=== PATIENT | female | born 1965 | race Caucasian/White ===

== ENCOUNTER 2017-05-28 14:14 | Emergency (ER) | payer MEDICAID ==
[2017-05-28] MEDS ORDERED: Diph,Pert(Acell),Tet Vac 0.5 ML SYR IM ONE (14:27)
--- NOTE | 2017-05-28 14:30 | Emergency Department Record ---
History of Present Illness - General Chief Complaint: Laceration(s) Stated Complaint: LACERATION ON LEFT ARM Time Seen by Provider: 05/28/17 14:26 Source: Patient, Family Mode of Arrival: Ambulatory Limitations: No limitations - History of Present Illness Initial Commments: 51 yo female presents after a fall onto a fish tank. She landed on her left elbow. She has a laceration to the left elbow. She denies weakness, numbness or tingling. She has full ROM of the elbow. She is not on any blood thinners. She has left side pain as well. No head injury or neck injury. No lower extremity injury. PCP Lida Anderson -: Minutes(s) Extremity Location: Left: Elbow Place: Home Associated Symptoms: None - [place] Coma Scale Eye Response: (4) Open spontaneously Motor Response: (6) Obeys commands Verbal Response: (5) Oriented [place] Total: 15 - Related Data Hx Tetanus Toxoid Vaccination: Yes Year of Tetanus Vaccination: unknown Previous Rx's Medication Instructions Recorded Cephalexin [Keflex] 500 mg PO TID #30 cap 05/28/17 Hydrocodone/Acetaminophen [[place] 1 each PO Q6H #25 tablet 05/28/17 5-325 Tablet] Mometasone/Formoterol [Dulera 100 8.8 gm IH BID #1 hfa.aer.ad 05/28/17 Mcg/5 Mcg Inhaler] Allergies Allergy/AdvReac Type Severity Reaction Status Date / Time No Known Drug Allergies Allergy Verified 05/28/17 14:24 Review of Systems Constitutional: Denies: Chills, Malaise, Weakness Eyes: Denies: Eye discharge ENT: Denies: Congestion, Throat pain Respiratory: Denies: Cough Cardiovascular: Denies: Chest pain, Syncope Endocrine: Denies: Fatigue Gastrointestinal: Denies: Abdominal pain, Diarrhea, Nausea, Vomiting Genitourinary: Denies: Dysuria, Urgency Musculoskeletal: Reports: Arthralgia. Denies: Back pain, Myalgia Skin: Reports: Other (Laceration). Denies: Bruising, Change in color Neurological: Denies: Headache, Numbness, Weakness Psychiatric: Denies: Anxiety Hematological/Lymphatic: Denies: Blood Clots, Easy bleeding, Easy bruising, Swollen glands Past Medical History - SOCIAL HISTORY Smoking Status: Current every day smoker Alcohol Use: None Drug Use: None - RESPIRATORY Hx Respiratory Disorders: Yes - CARDIOVASCULAR Hx Cardio Disorders: Yes Hx Hypertension: Yes - NEURO Hx Neuro Disorders: No - GI Hx GI Disorders: Yes Hx Abdominal Pain: Yes Hx Reflux: Yes Hx Hiatal Hernia: Yes Hx Nausea/Vomiting: Yes Hx Wt Loss/Wt Gain: Yes - Hx Genitourinary Disorders: Yes Hx Kidney Stones: Yes (2012) - ENDOCRINE Hx Endocrine Disorders: Yes Hx Diabetes: Yes Hx Thyroid Disease: No - MUSCULOSKELETAL Hx Musculoskeletal Disorders: No - PSYCH Hx Psych Problems: Yes Hx Anxiety: Yes Hx Depression: Yes - HEMATOLOGY/ONCOLOGY Hx Hematology/Oncology Disorders: Yes Hx Cancer: Yes (Colon, tumor removed) Hx Chemotherapy: No Hx Radiation Therapy: No Family Medical History Any Significant Family History?: Yes Hx Anxiety: Mother, Brother/Sister Hx Cancer: Brother/Sister Hx Heart Disease: Mother Hx HTN: Mother Hx Resp Disorders: Father, Brother/Sister Physical Exam - General General Appearance: Alert, Oriented x3, Cooperative, No acute distress Limitations: No limitations - Head Head exam: Atraumatic, Normocephalic, Normal inspection - Eye Eye exam: Normal appearance. negative: Conjunctival injection, Periorbital swelling - ENT ENT exam: Normal exam, Mucous membranes moist Ear exam: Normal external inspection Nasal Exam: Normal inspection Mouth exam: Normal external inspection Teeth exam: Normal inspection - Neck Neck exam: Normal inspection - Respiratory Respiratory exam: Normal lung sounds bilaterally, Chest wall tenderness (left psterior ribs tender). negative: Accessory muscle use, Rhonchi, Stridor, Wheezes - Cardiovascular Cardiovascular Exam: Regular rate, Normal rhythm, Normal heart sounds Peripheral Pulses: 2+: Radial (R), Radial (L) - GI/Abdominal GI/Abdominal exam: Soft, Tenderness (tender left lateral abdominal wall). negative: Distended - Rectal Rectal exam: Deferred - exam: Deferred - Extremities Extremities exam: Other (laceration). negative: Normal inspection Image of Full Body: 1 - superficial abrasion, tender left flank 2 - 7 cm posterior elbow laceration, no FB or debris, some avulsed tissue, smaller distal triangle flap, no visible muscle or bone, full ROM of the elbow, sensation intact distally - Back Back exam: Reports: CVA tenderness (L), Muscle spasm, Tenderness. Denies: Normal inspection - Neurological Neurological exam: Alert, CN II-XII intact, Normal gait, Oriented X3. negative : Altered, Motor sensory deficit - Psychiatric Psychiatric exam: Normal affect, Normal mood. negative: Agitated, Anxious - Skin Skin exam: Other (laceration left posterior arm). negative: Diaphoretic, Erythema Course - Reevaluation(s) Reevaluation #1: The patient has a large posterior arm/elbow laceration This was immediately irrigated and washed out Lidocaine with epi local infiltration performed 05/28/17 15:08 Reevaluation #2: The elbow XR was reviewed with the radiologist No FB 05/28/17 15:45 Reevaluation #3: The CT scan of the chest was read as negative The CT scan of the ABDomen and pelvis demonstrated a non displaced 10th rib FX The Elbow was negative for fracture, effusion, or FB Reevaluation #4: Procedure Elbow Laceration Betadine skin Prep Shurclens spray and cleaning NS irrigation and additional 500cc Vicryl 4-0 deep to close gapping tissue #4 Prolene 3-0 suture simple interrupted #19 There was small areas of flap and avulsed tissue but coverage was near 100% non stick dressing placed I did speak with the patient's PCP Lida Anderson She was able to see the patient breifly in the ED She will assist in close outpatient follow up as this may be a wound with prolonged healing and risks for infection that were discussed with the patient She was given Kefzol in the ED 05/28/17 18:00 The patient states she is comfortable with breathing and pain control We discussed reasons to return and close follow up with the ED and her PCP 05/28/17 18:03 The patient ambulated well She reports she has controlled pain and prefers DC home She will be seen by RT for incentive spirometry We discussed returning at any time if she has concerns about infection, pain control or her breathing 05/28/17 18:12 05/28/17 18:34 She was seen by Medical Decision Making - Lab Data Result diagrams: 05/28/17 14:48 05/28/17 14:45 Disposition Disposition: Discharge Clinical Impression: Left rib fracture Qualifiers: Encounter type: initial encounter Rib fracture type: single rib Fracture type: closed Qualified Code(s): S22.32XA - Fracture of one rib, left side, initial encounter for closed fracture Elbow laceration Qualifiers: Encounter type: initial encounter Laterality: left Qualified Code(s): S51.012A - Laceration without foreign body of left elbow, initial encounter Disposition: Home, Self-Care Condition: (1) Good Instructions: Laceration (ED) Additional Instructions: Return on Saturday for a recheck of the laceration if not able to see your doctor this week Return immediately if you have fever, redness, pus, pain or any new concerns for injury or infection Take the Keflex 4 times daily You will need the sutures removed in 14 days Change the dressings once daily Prescriptions: Cephalexin [Keflex] 500 mg PO TID #30 cap Hydrocodone/Acetaminophen [[place] 5-325 Tablet] 1 each PO Q6H #25 tablet Mometasone/Formoterol [Dulera 100 Mcg/5 Mcg Inhaler] 8.8 gm IH BID #1 hfa.aer.ad Forms: Patient Portal Access Time of Disposition: 18:06 Quality - Quality Measures Quality Measures: N/A - Blood Pressure Screening Does Patient Have Any of the Following: No Blood Pressure Classification: Pre-Hypertensive BP Reading Systolic Measurement: 162 Diastolic Measurement: 88 Screening for High Blood Pressure: < Pre-Hypertensive BP, F/U Documented > [ G8950] Pre-Hypertensive Follow-up Interventions: Referral to alternative/primary care provider.
[2017-05-28 14:56] LABS: BASO % 0.2 % (0-6); EOS % 1.2 % (0-6); GRAN % 63.9 % (47-80); HEMATOCRIT 38.5 % (35.0-47.0); HEMOGLOBIN 12.5 gm/dl (11.6-16.0); LYMPH % 26.6 % (16-45); MEAN CELL VOLUME 90.6 fl (81-97); MEAN CORPUSCULAR HEMOGLOBIN 29.4 pg (27-33); MEAN CORPUSCULAR HGB CONC 32.5 g/dl (32-36); MEAN PLATELET VOLUME 9.8 fl (7.4-10.4); MONO % 8.1 % (0-9); PLATELET COUNT 420 K/uL (130-400); RED BLOOD COUNT 4.25 M/uL (3.80-5.40); RED CELL DISTRIBUTION WIDTH 15.9 % (11.5-14.5); WHITE BLOOD COUNT W/O DIFF 13.7 K/uL (4.2-12.2)
[2017-05-28 15:05] LABS: ANION GAP 10.2 (7-16); BLOOD UREA NITROGEN 7 mg/dL (7-17); CARBON DIOXIDE 22.8 mmol/L (22-30); CREATININE 0.5 mg/dL (0.52-1.04); EST GLOMERULAR FILTRATION RATE > 60 ml/min; GLUCOSE,RANDOM 130 mg/dL (70-110)
[2017-05-28] MEDS ORDERED: FENTANYL PF 100MCG/2ML VIAL IVP ONE ×2 (15:08→16:13)
[2017-05-28 15:26] LABS: INR 1.13; PARTIAL THROMBOPLASTIN TIME 25.7 SECONDS (24.5-39.1); PROTHROMBIN TIME (PATIENT) 12.2 SECONDS (9.5-12.1)
[2017-05-28] MEDS ORDERED: CEFAZOLIN 2 Gram 2 GM/50 ML BAG IVPB ONE (16:56)
--- NOTE | 2017-05-29 08:32 | CT SCAN REPORT ---
EXAM: EMERGENCY CT OF THE ABDOMEN AND PELVIS WITH CONTRAST HISTORY: PATIENT FELL ONTO A FISH TANK WITH ACUTE LEFT SIDED PAIN . PRIOR UMBILICAL HERNIA REPAIR, CHOLECYSTECTOMY. TECHNIQUE: Axial CT scan of the abdomen and pelvis was obtained following both oral and IV contrast administration utilizing a dose of 100 ml of Omnipaque 300 as the IV contrast. Oral contrast was also utilized. Comparison: CT of the abdomen and pelvis 06/07/15. Encounter: Initial. FINDINGS: There is some mild pericardial fluid or thickening similar to that seen on 06/07/15. Minor linear fibrosis or discoid atelectasis in the lingula. No basilar pneumothorax on either side. Postop cholecystectomy. Postop changes in the region of the proximal transverse colon probably representing prior proximal colon resection with an ileocolic anastomosis in this location. There is a subtle area of low attenuation approximately 2.3 cm in diameter anteriorly in the right lobe of the liver not clearly seen on the prior study, nonspecific in nature. This has a CT density fo 68 and is not a simple cyst. This could just represent some variable fatty infiltration, but was not clearly seen previously. Elsewhere the liver appears negative. No definite splenic, right adrenal, pancreatic, or renal mass identified aside from a single tiny low attenuation in the upper pole of the left kidney which I believe was present previously as well and is likely just a tiny cyst. Small nodule left adrenal appears unchanged, presumably a lipid rich adenoma. There is a small midline anterior abdominal wall hernia that has progressed from the prior study and contains a small amount of nonobstructed transverse colon. No free intraperitoneal air or free intraperitoneal fluid evident. Prominent spurring in the spine. There is spondylolysis of L5 on the right, but not on the left. Exuberant hypertrophic spurring in the lower thoracic spine and multilevel degenerative disk disease in the lumbar spine. There is probably an undisplaced fracture laterally in the left tenth rib. This is new compared with the 06/07/15 exam and is presumably acute. There is some mild soft tissue stranding in the subcutaneous adipose tissue of the left flank region which may represent some contusion in the subcutaneous tissues. This is also new compared with the prior study. IMPRESSION: 1. UNDISPLACED FRACTURE OF THE LEFT TENTH RIB POSTEROLATERALLY NEW SINCE AND APPEARS ACUTE. NO UNDERLYING PNEUMOTHORAX EVIDENT. 2. THERE IS PROBABLY SOME CONTUSION IN THE SUBCUTANEOUS TISSUES OF THE LEFT FLANK WELL. 3. MILD PERICARDIAL FLUID OR THICKENING BEFORE. 4. POSTOP CHOLECYSTECTOMY. 5. SUBTLE LOW ATTENUATION FOCUS RIGHT LOBE OF THE LIVER FAR ANTERIORLY MAY JUST BE SOME VARIABLE FATTY INFILTRATION, BUT IS NONSPECIFIC. THIS COULD BE FURTHER ASSESSED WITH AN MRI IF CLINICALLY WARRANTED AND NOT CONTRAINDICATED. 6. POSTOP PROXIMAL COLON RESECTION OF AN ILEOCOLIC ANASTOMOSIS IN THE REGION OF THE PROXIMAL TRANSVERSE COLON. 7. MIDLINE ANTERIOR ABDOMINAL WALL HERNIA CONTAINING A SMALL SEGMENT OF THE MID TRANSVERSE COLON, NONOBSTRUCTING. 8. 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 9. UNILATERAL SPONDYLOLYSIS OF L5 ON THE RIGHT. EXTENSIVE DEGENERATIVE CHANGES IN THE SPINE. JOB NUMBER: [id number] [facility]
--- NOTE | 2017-05-29 08:38 | CT SCAN REPORT ---
EXAM: CHEST CT WITHOUT IV CONTRAST HISTORY: FALL, LEFT RIB INJURY AND LEFT CHEST PAIN. TECHNIQUE: Contiguous axial images from the thoracic inlet to the upper abdomen were obtained without IV contrast. Comparison: CT of the chest 04/29/15. Encounter: Initial. FINDINGS: Focal reticular density in the anterior aspect of the right lower lobe consistent with post inflammatory scarring. Similar findings in the superior segment of the left lower lobe consistent with scarring. Benign calcified granuloma 1 mm left upper lobe. No pleural effusion. No pneumothorax. Linear scarring in the lingula. Hypodense nodule in the mid to lower left thyroid lobe measuring 11 mm. The heart is not enlarged and there is no pericardial effusion. Mild coronary artery calcification. No enlarged lymph nodes in the thorax. No rib fracture. No lytic or blastic osseous lesion. The upper abdomen demonstrates thickening of the adrenal glands consistent with benign hyperplasia. IMPRESSION: 1. NO ACUTE INTRATHORACIC PROCESS. NO RIB FRACTURES IDENTIFIED. 2. SMALL FOCI OF POST INFLAMMATORY SCARRING IN THE LUNGS ABOVE. 3. MILD CORONARY ARTERY CALCIFICATION. JOB NUMBER: [id number] [facility]
--- NOTE | 2017-05-29 08:41 | RADIOLOGY REPORT ---
EXAM: LEFT ELBOW, THREE VIEWS HISTORY: FALL AGAINST FISH TANK WHICH SHATTERED. LEFT ELBOW INJURY AND PAIN. TECHNIQUE: Three views of the left elbow were obtained. Comparison: None. FINDINGS: No acute fracture or radiodense foreign body. Soft tissue swelling/ defect posterior aspect left elbow. IMPRESSION: NEGATIVE FOR ACUTE FRACTURE OR RADIODENSE FOREIGN BODY OF THE LEFT ELBOW. JOB NUMBER: [id number] [facility]
== END 2017-05-28 18:38 | disposition home or self-care (01) ==
LOC: ER 14:14
DX: S51.012A Laceration without foreign body of left elbow, initial encounter (principal); S22.32XA Fracture of one rib, left side, initial encounter for closed fracture; S30.811A Abrasion of abdominal wall, initial encounter; W18.02XA Striking against glass with subsequent fall, initial encounter; Y92.009 Unspecified place in unspecified non-institutional (private) residence as the place of occurrence of the external cause
CPT/HCPCS: 12032 ×2; 99284 ×2; 96376; 96374; 96372; 96375; 85025; 85730; 85610; 80048; 73080; 71250; 74177; 94010; Q9967; J3010; J0690; 90715

== ENCOUNTER 2017-05-31 20:04 | Emergency (ER) | payer MEDICAID ==
--- NOTE | 2017-05-31 21:00 | Emergency Department Record ---
History of Present Illness - General Stated Complaint: RECHECK Time Seen by Provider: 05/31/17 20:53 Source: Patient Mode of arrival: Ambulatory Limitations: No limitations - History of Present Illness Initial Comments: 51 yo female presents with recheck of her left arm laceration and left rib injuries. She reports left rib pain still. No shortness of breath. NO hemoptysis. She has developed some bruising in that area. Her arm laceration is doing well with minimal swelling, no warmth, redness or drainage. No fevers. She is cleaning the area daily and changing the dressings. NO restrictions on ROM of the elbow. No pain with ROM of the elbow. No other new symptoms. MD Complaint: Wound re-check -: Days(s) Initial Visit For: Laceration, Other (rib fracture) Returns Today for: Wound recheck Symptoms Since Prior Visit: No new symptoms - Related Data Previous Rx's Medication Instructions Recorded Cephalexin [Keflex] 500 mg PO TID #30 cap 05/28/17 Hydrocodone/Acetaminophen [[place] 1 each PO Q6H #25 tablet 05/28/17 5-325 Tablet] Mometasone/Formoterol [Dulera 100 8.8 gm IH BID #1 hfa.aer.ad 05/28/17 Mcg/5 Mcg Inhaler] Hydrocodone/Acetaminophen [[place] 1 tab PO Q6H PRN #25 tab 05/31/17 7.5mg/325mg] Allergies Allergy/AdvReac Type Severity Reaction Status Date / Time No Known Drug Allergies Allergy Verified 05/28/17 14:24 Review of Systems Constitutional: Denies: Chills, Fever, Malaise, Weakness Eyes: Denies: Eye discharge, Eye pain, Photophobia, Vision change ENT: Denies: Congestion, Throat pain Respiratory: Denies: Cough, Dyspnea, Hemoptysis, Stridor, Wheezes Cardiovascular: Reports: As per HPI, Chest pain. Denies: Palpitations, Syncope Endocrine: Reports: Fatigue. Denies: Polydipsia, Polyuria Gastrointestinal: Denies: Abdominal pain, Diarrhea, Nausea, Vomiting Genitourinary: Denies: Dysuria, Urgency Musculoskeletal: Denies: Arthralgia, Back pain, Joint swelling, Myalgia, Neck pain Skin: Reports: As per HPI, Bruising. Denies: Change in color, Rash Neurological: Denies: Headache, Numbness, Vertigo, Weakness Psychiatric: Denies: Anxiety Hematological/Lymphatic: Denies: Blood Clots, Easy bleeding, Easy bruising, Swollen glands Past Medical History - SOCIAL HISTORY Smoking Status: Current every day smoker Drug Use: None - RESPIRATORY Hx Respiratory Disorders: Yes - CARDIOVASCULAR Hx Cardio Disorders: Yes Hx Hypertension: Yes - NEURO Hx Neuro Disorders: No - GI Hx GI Disorders: Yes Hx Abdominal Pain: Yes Hx Reflux: Yes Hx Hiatal Hernia: Yes Hx Nausea/Vomiting: Yes Hx Wt Loss/Wt Gain: Yes - Hx Genitourinary Disorders: Yes Hx Kidney Stones: Yes (2012) - ENDOCRINE Hx Endocrine Disorders: Yes Hx Diabetes: Yes Hx Thyroid Disease: No - MUSCULOSKELETAL Hx Musculoskeletal Disorders: No - PSYCH Hx Psych Problems: Yes Hx Anxiety: Yes Hx Depression: Yes - HEMATOLOGY/ONCOLOGY Hx Hematology/Oncology Disorders: Yes Hx Cancer: Yes (Colon, tumor removed) Hx Chemotherapy: No Hx Radiation Therapy: No Family Medical History Hx Anxiety: Mother, Brother/Sister Hx Cancer: Brother/Sister Hx Heart Disease: Mother Hx HTN: Mother Hx Resp Disorders: Father, Brother/Sister Physical Exam - General General Appearance: Alert, Oriented x3, Cooperative, No acute distress Limitations: No limitations - Head Head exam: Atraumatic, Normocephalic, Normal inspection - Eye Eye exam: Normal appearance. negative: Conjunctival injection, Periorbital swelling - ENT ENT exam: Normal exam, Mucous membranes moist Ear exam: Normal external inspection Nasal Exam: Normal inspection Mouth exam: Normal external inspection - Neck Neck exam: Normal inspection, Full ROM. negative: Tenderness - Respiratory Respiratory exam: Normal lung sounds bilaterally, Chest wall tenderness (left lateral lower, with some bruising now). negative: Prolonged expiratory, Respiratory distress, Rhonchi, Stridor, Wheezes - Cardiovascular Cardiovascular Exam: Regular rate, Normal rhythm, Normal heart sounds - GI/Abdominal GI/Abdominal exam: Soft. negative: Distended, Guarding, Rigid, Tenderness - Rectal Rectal exam: Deferred - exam: Deferred - Extremities Extremities exam: Full ROM. negative: Joint swelling Image of Full Body: 1 - the laceration is healing well at this time, no warmth or redness, very mild bruising now present, she has full ROM of the elbow without any pain, no pus, drainage or signs of infection. - Back Back exam: Denies: Normal inspection (brusiing left flank near rib fracture site ) - Neurological Neurological exam: Alert, Oriented X3 - Psychiatric Psychiatric exam: Normal affect, Normal mood - Skin Skin exam: Other (bruising) Course Vital Signs 05/31/17 20:42 Temperature 98.4 F Respiratory 20 Rate Blood Pressure 144/75 [Right Arm] Pulse Ox 95 - Reevaluation(s) Reevaluation #1: The laceration is healing at this point without any signs of infection or complication, no warmth, pus, redness or significant swelling. The area was cleaned and redressed. The elbow has a full ROM without pain. 05/31/17 21:10 Disposition Disposition: Discharge Clinical Impression: Encounter for wound re-check Rib fracture Qualifiers: Encounter type: initial encounter Rib fracture type: single rib Fracture type: closed Laterality: left Qualified Code(s): S22.32XA - Fracture of one rib, left side, initial encounter for closed fracture Disposition: Home, Self-Care Condition: (1) Good Instructions: Laceration (ED) Additional Instructions: Return or see your doctor first of the week for a recheck of your laceration Return sooner if warm, red, swelling, pus or concerns Continue daily dressing changes and antibiotics Prescriptions: Hydrocodone/Acetaminophen [[place] 7.5mg/325mg] 1 tab PO Q6H PRN #25 tab PRN Reason: Pain - General Time of Disposition: 21:12 Quality - Quality Measures Quality Measures: N/A - Blood Pressure Screening Does Patient Have Any of the Following: No Blood Pressure Classification: Hypertensive Reading Systolic Measurement: 144 Diastolic Measurement: 75 Screening for High Blood Pressure: < Pre-Hypertensive BP, F/U Documented > [ G8950] Pre-Hypertensive Follow-up Interventions: Referral to alternative/primary care provider.
== END 2017-05-31 21:22 | disposition home or self-care (01) ==
LOC: ER 20:04
DX: S51.012A Laceration without foreign body of left elbow, initial encounter (principal); S22.32XA Fracture of one rib, left side, initial encounter for closed fracture; S30.811A Abrasion of abdominal wall, initial encounter; W18.02XA Striking against glass with subsequent fall, initial encounter; Y92.009 Unspecified place in unspecified non-institutional (private) residence as the place of occurrence of the external cause
CPT/HCPCS: 99282

== ENCOUNTER 2017-06-11 12:25 | Emergency (ER) | payer MEDICAID ==
--- NOTE | 2017-06-11 12:29 | Emergency Department Record ---
History of Present Illness - General Chief Complaint: Suture removal Stated Complaint: SUTURE REMOVAL Time Seen by Provider: 06/11/17 12:29 Source: Patient Mode of arrival: Ambulatory Limitations: No limitations - History of Present Illness Initial Comments: 51 yo female presents for a recheck of her left posterior arm laceration. She reports she is doing well. No pain or redness. No drainage. NO problems with healing. MD Complaint: Suture/staple removal, Wound re-check -: Week(s) (2) Initial Visit For: Laceration Returns Today for: Staple/stitch removal Symptoms Since Prior Visit: No new symptoms Associated Symptoms: None - Related Data Previous Rx's Medication Instructions Recorded Hydrocodone/Acetaminophen [[place] 1 each PO Q6H #25 tablet 05/28/17 5-325 Tablet] Mometasone/Formoterol [Dulera 100 8.8 gm IH BID #1 hfa.aer.ad 05/28/17 Mcg/5 Mcg Inhaler] Allergies Allergy/AdvReac Type Severity Reaction Status Date / Time No Known Drug Allergies Allergy Verified 06/11/17 12:29 Review of Systems Constitutional: Denies: Chills, Fever, Malaise, Weakness Eyes: Denies: Eye discharge ENT: Denies: Congestion, Throat pain Respiratory: Denies: Cough Cardiovascular: Reports: Chest pain (rib fracture, improving with some pain still, no shortness of breath). Denies: Palpitations, Syncope Endocrine: Denies: Fatigue Gastrointestinal: Denies: Abdominal pain, Diarrhea, Nausea, Vomiting Genitourinary: Denies: Dysuria, Incontinence Musculoskeletal: Denies: Arthralgia, Myalgia Skin: Denies: Bruising, Change in color, Rash Neurological: Denies: Abnormal gait, Headache, Numbness, Weakness Psychiatric: Denies: Anxiety Hematological/Lymphatic: Denies: Blood Clots, Easy bleeding, Easy bruising Past Medical History - SOCIAL HISTORY Smoking Status: Current every day smoker Alcohol Use: None Drug Use: None - RESPIRATORY Hx Respiratory Disorders: Yes - CARDIOVASCULAR Hx Cardio Disorders: Yes Hx Hypertension: Yes - NEURO Hx Neuro Disorders: No - GI Hx GI Disorders: Yes Hx Abdominal Pain: Yes Hx Reflux: Yes Hx Hiatal Hernia: Yes Hx Nausea/Vomiting: Yes Hx Wt Loss/Wt Gain: Yes - Hx Genitourinary Disorders: Yes Hx Kidney Stones: Yes (2012) - ENDOCRINE Hx Endocrine Disorders: Yes Hx Diabetes: Yes Hx Thyroid Disease: No - MUSCULOSKELETAL Hx Musculoskeletal Disorders: No - PSYCH Hx Psych Problems: Yes Hx Anxiety: Yes Hx Depression: Yes - HEMATOLOGY/ONCOLOGY Hx Hematology/Oncology Disorders: Yes Hx Cancer: Yes (Colon, tumor removed) Hx Chemotherapy: No Hx Radiation Therapy: No Family Medical History Any Significant Family History?: Yes Hx Anxiety: Mother, Brother/Sister Hx Cancer: Brother/Sister Hx Heart Disease: Mother Hx HTN: Mother Hx Resp Disorders: Father, Brother/Sister Physical Exam - General General Appearance: Alert, Oriented x3, Cooperative, No acute distress Limitations: No limitations - Head Head exam: Atraumatic, Normal inspection - Eye Eye exam: Normal appearance - ENT ENT exam: Normal exam Ear exam: Normal external inspection Nasal Exam: Normal inspection - Neck Neck exam: Normal inspection - Respiratory Respiratory exam: Normal lung sounds bilaterally. negative: Respiratory distress - Cardiovascular Cardiovascular Exam: Regular rate, Normal rhythm, Normal heart sounds - Rectal Rectal exam: Deferred - exam: Deferred - Extremities Extremities exam: Normal inspection, Full ROM, Normal capillary refill. negative: Joint swelling, Tenderness Image of Full Body: 1 - healing laceration, no redness or pus, the wound intact, no redness or pus , healing without signs of complication - Neurological Neurological exam: Alert, Oriented X3 - Psychiatric Psychiatric exam: Agitated, Anxious - Skin Type of lesion: Other (healing bruising) Disposition Disposition: Discharge Clinical Impression: Visit for suture removal Rib fracture Qualifiers: Encounter type: initial encounter Rib fracture type: single rib Fracture type: closed Laterality: left Qualified Code(s): S22.32XA - Fracture of one rib, left side, initial encounter for closed fracture Disposition: Home, Self-Care Condition: (1) Good Instructions: Stitches Removal (ED) Additional Instructions: follow up with your doctor for close follow up as you continue to heal Return to the ED if you have any concerns as you heal Forms: Patient Portal Access Time of Disposition: 12:47 Quality - Quality Measures Quality Measures: N/A - Blood Pressure Screening Does Patient Have Any of the Following: No Blood Pressure Classification: Hypertensive Reading Systolic Measurement: 158 Diastolic Measurement: 106 Screening for High Blood Pressure: < Pre-Hypertensive BP, F/U Documented > [ G8950] Pre-Hypertensive Follow-up Interventions: Referral to alternative/primary care provider.
== END 2017-06-11 13:02 | disposition home or self-care (01) ==
LOC: ER 12:25
DX: Z48.02 Encounter for removal of sutures (principal); S22.32XA Fracture of one rib, left side, initial encounter for closed fracture

== ENCOUNTER 2018-03-31 07:24 | Day surgery (SDC) | payer MEDICAID ==
[~2018-03-31 07:24] MED LIST: ACETAMINOPHEN 1,000 MG/100 ML BTL IV ONE; CEFAZOLIN 2 Gram 2 GM/50 ML BAG IVPB ONE; FAMOTIDINE 20MG TABLET PO ONE; MECLIZINE 25 MG TABLET PO ONE; METOCLOPRAMIDE 10 MG TABLET PO ONE
[2018-03-31] MEDS ORDERED: PROPOFOL 10 MG/ML VIAL IV ONE (07:25)
[2018-03-31] MEDS ORDERED: FENTANYL PF 100MCG/2ML VIAL IV ONE (07:25)
[2018-03-31] MEDS ORDERED: BUPIVACAINE 0.25% W/EPI MPF 30ML VIAL IVP ONE (07:25)
[2018-03-31] MEDS ORDERED: KETOROLAC 30 MG/ML VIAL IVP ONE (07:25)
[2018-03-31] MEDS ORDERED: SEVOFLURANE 250 ML INH ONE (07:25)
[2018-03-31] MEDS ORDERED: HYDROCODONE/APAP 5/325MG TABLET PO ONE (07:25)
[2018-03-31] MEDS ORDERED: ROCURONIUM BROMIDE 50MG/5ML VIAL IV ONE (07:25)
[2018-03-31] MEDS ORDERED: ONDANSETRON HCL IV 4 MG/2 ML VIAL IVP ONE (07:25)
[2018-03-31] MEDS ORDERED: EPHEDRINE SULFATE 50 MG/ML ML IV ONE (07:25)
[2018-03-31] MEDS ORDERED: DEXAMETHASONE 4 MG/ML 1ML VIAL IVP ONE (07:25)
[2018-03-31] MEDS ORDERED: LIDOCAINE 1% MDV (10MG/ML) 20ML VIAL SQ ONE (07:25)
[2018-03-31] MEDS ORDERED: GLYCOPYRROLATE 0.2 MG/ML ML IV ONE (07:25)
[2018-03-31] MEDS ORDERED: SUCCINYLCHOLINE 20 MG/ML 10ML IVP ONE (07:25)
[2018-03-31] MEDS ORDERED: ROPIVACAINE HCL (NAROPIN) /PF 5MG/ML 20ML VIAL IV ONE (07:25)
[2018-03-31] MEDS ORDERED: NEOSTIGMINE 1 MG/1 ML,10ML VIAL IV ONE (07:25)
[2018-03-31] MEDS ORDERED: SCOPOLAMINE 1 PATCH TDSY TD ONE (07:25)
[2018-03-31] MEDS ORDERED: MIDAZOLAM HCL 2MG/2ML VIAL IV ONE (07:25)
--- NOTE | 2018-03-31 12:50 | Operative Note ---
DATE OF SURGERY: 03/31/2018 Surgeon: Celio Tony DO PREOPERATIVE DIAGNOSIS: Reducible ventral hernia. POSTOPERATIVE DIAGNOSIS: Reducible ventral hernia. OPERATION: Open ventral herniorrhaphy with mesh. Indication: The patient is a 52-year-old female who underwent a prior midline laparotomy for a colon resection. She has also undergone an open cholecystectomy, wound infection, and subsequent drainage. She did have a midline hernia which was reducible. We did discuss repair. Risks, benefits, and alternatives were discussed. Risks include bleeding, infection, acute or chronic pain, recurrence, injury to underlying visceral structures. She understood this full. Thereafter, consent was signed and questions answered. PROCEDURE: She was taken to the operating room and placed in a supine position. General anesthesia was administered per the department of anesthesia. The patient's abdomen was prepped and draped in the usual sterile fashion. The area over the hernia was anesthetized with a total of 10 mL of 0.25% Sensorcaine with epinephrine. The patient had also undergone a prior TAP block. Adequate timeout was performed. Her identity was confirmed. She did receive preoperative antibiotics as well as DVT prophylaxis. At this time, a 6 cm incision was made. This was carried down to a hernia sac. Clean circumferential fascial edges were obtained about 3 cm around the hernia. The hernia sac was then entered, amputated. This did contain omentum. The intraperitoneal space was created. At this time, the hernia measured about 2 cm. An 8.[address] mesh was obtained. This was placed in the intraperitoneal position. The upper skirt was sutured to the fascia with 2-0 Vicryl. I did close the fascia with #1 Vicryl over the top of this for extra reinforcement. A 10 x 4 cm ProGrip mesh was then laid on the fascia. The subcutaneous tissue was then closed with 2-0 Vicryl, skin was closed with stapling device. An abdominal binder was placed, and she was taken to the recovery room in satisfactory condition. FINDINGS ON SURGERY: Ventral hernia repaired as above. CC: SARA Buenrostro
== END 2018-03-31 10:40 | disposition home or self-care (01) ==
LOC: SUR 07:24
PROVIDERS: ATTEND Surgery
DX: K43.9 Ventral hernia without obstruction or gangrene (principal); E11.9 Type 2 diabetes mellitus without complications; E78.00 Pure hypercholesterolemia, unspecified; I10 Essential (primary) hypertension; J45.909 Unspecified asthma, uncomplicated
CPT/HCPCS: 49568; 49560; 00832; 36416; 82948; 81025; J1885; J2405; J3010; J0690; J2795; J0330; J2710

== ENCOUNTER 2019-07-08 17:40 | Emergency (ER) | payer MEDICAID ==
[2019-07-08 19:09] LABS: ABSOLUTE NEUTROPHIL COUNT 16.62; HEMATOCRIT 41.3 % (35.0-47.0); MEAN CELL VOLUME 97.4 fl (81-97); MEAN CORPUSCULAR HEMOGLOBIN 30.7 pg (27-33); MEAN CORPUSCULAR HGB CONC 31.5 g/dl (32-36); MEAN PLATELET VOLUME 9.7 fl (7.4-10.4); PLATELET COUNT 358 K/uL (130-400); RED BLOOD COUNT 4.24 M/uL (3.80-5.40); RED CELL DISTRIBUTION WIDTH 13.9 % (11.5-14.5); WHITE BLOOD COUNT W/O DIFF 18.2 K/uL (4.2-12.2)
[2019-07-08 19:16] LABS: PLATELET ESTIMATE NORMAL (NORMAL)
[2019-07-08 19:19] LABS: BLOOD UREA NITROGEN 21 mg/dL (6-20); CREATININE 0.6 mg/dL (0.5-0.9); EST GLOMERULAR FILTRATION RATE > 60 mL/min; INR 1.1; PARTIAL THROMBOPLASTIN TIME 26.4 SECONDS (24.5-39.1); PROTHROMBIN TIME (PATIENT) 11.1 SECONDS (9.5-12.1)
[2019-07-08 19:20] LABS: TOTAL PROTEIN 7.7 g/dL (6.6-8.7)
[2019-07-08 19:22] LABS: GLUCOSE,RANDOM 117 mg/dL (74-109)
[2019-07-08 19:25] LABS: ALB/GLOB RATIO 1.5 (1.1-1.8); ALBUMIN 4.6 g/dL (4.0-5.0); ALKALINE PHOSPHATASE 110 U/L (35-104); ALT/SGPT 14 U/L (<33); AST/SGOT 12 U/L (10.0-35.0)
--- NOTE | 2019-07-08 19:44 | RADIOLOGY REPORT ---
EXAMINATION: Two View Chest Radiographs EXAM DATE: 07/08/2019 7:29 PM TECHNIQUE: Frontal and lateral views INDICATION: cough COMPARISON: 07/06/2019 ENCOUNTER: Not applicable FINDINGS: Heart and mediastinal structures stable. No pulmonary consolidation or infiltration. No pneumothorax or pleural effusion. Stable sclerotic density in the left humeral head and left scapula IMPRESSION: No acute abnormality Dictated by: Matheus Peck MD on 07/08/2019 7:40 PM. .
--- NOTE | 2019-07-08 19:48 | Emergency Department Record ---
History of Present Illness - General Chief Complaint: Cough Stated Complaint: COUGH,LT HIP/UNEXPLAINED BRUISING Time Seen by Provider: 07/08/19 18:41 Source: Patient Mode of Arrival: Ambulatory Limitations: No limitations - History of Present Illness Initial comments: pt sent over from [facility] because she has a bruise on her flank. she has had bronchitis and has been on zithromax for 2 days. she has been coughing very hard and now she has a bruise on her flank that she is unsure of etiology. she denies injury. Onset/Timin -: Days(s) Location: Abdomen Radiation: Flank Quality: Aching Consistency: Constant Associated Symptoms: Cough - Related Data Previous Rx's Medication Instructions Recorded Amoxicillin/Potassium Clav 1 tab PO BID #14 tab 07/08/19 [Augmentin 875-125 Tablet] Benzonatate [Tessalon] 1 cap PO Q8H PRN #14 cap 07/08/19 Allergies Allergy/AdvReac Type Severity Reaction Status Date / Time No Known Drug Allergies Allergy Unverified 07/06/19 15:19 Travel Screening - Travel/Exposure Within Last 30 Days Have you traveled within the last 30 days?: No - Travel/Exposure Within Last Year Have you traveled outside the [place] in the last year?: No - Additonal Travel Details Have you been exposed to anyone with a communicable illness?: No Review of Systems Reviewed: No additional complaints except as noted below Constitutional: Reports: As per HPI. Denies: Chills, Fever, Malaise, Night sweats, Weakness, Weight change Eyes: Reports: As per HPI. Denies: Eye discharge, Eye pain, Photophobia, Vision change ENT: Reports: As per HPI. Denies: Congestion, Dental pain, Ear pain, Epistaxis, Hearing loss, Throat pain Respiratory: Reports: As per HPI. Denies: Cough, Dyspnea, Hemoptysis, Stridor, Wheezes Cardiovascular: Reports: As per HPI. Denies: Arrhythmia, Chest pain, Dyspnea on exertion, Edema, Murmurs, Orthopnea, Palpitations, Paroxysmal nocturnal dyspnea, Rheumatic Fever, Syncope Endocrine: Reports: As per HPI. Denies: Fatigue, Heat or cold intolerance, Polydipsia, Polyuria Gastrointestinal: Reports: As per HPI. Denies: Abdominal pain, Constipation, Diarrhea, Hematemesis, Hematochezia, Melena, Nausea, Vomiting Genitourinary: Reports: As per HPI. Denies: Abnormal menses, Discharge, Dyspareunia, Dysuria, Frequency, Hematuria, Incontinence, Retention, Urgency Musculoskeletal: Reports: As per HPI. Denies: Arthralgia, Back pain, Gout, Joint swelling, Myalgia, Neck pain Skin: Reports: As per HPI. Denies: Bruising, Change in color, Change in hair/nails, Lesions, Pruritus, Rash Neurological: Reports: As per HPI. Denies: Abnormal gait, Confusion, Headache, Numbness, Paresthesias, Seizure, Tingling, Tremors, Vertigo, Weakness Psychiatric: Reports: As per HPI. Denies: Anxiety, Auditory hallucinations, Depression, Homicidal thoughts, Suicidal thoughts, Visual hallucinations Hematological/Lymphatic: Reports: As per HPI. Denies: Anemia, Blood Clots, Easy bleeding, Easy bruising, Swollen glands Past Medical History - SOCIAL HISTORY Smoking Status: Current every day smoker Alcohol Use: None Drug Use: None - RESPIRATORY Hx Respiratory Disorders: Yes Hx Bronchitis: Yes (2 weeks ago-on ABX-better now) Hx COPD: Yes - CARDIOVASCULAR Hx Cardio Disorders: Yes Hx Hypertension: Yes - NEURO Hx Neuro Disorders: No - GI Hx GI Disorders: Yes Hx Abdominal Pain: Yes Hx Reflux: No Hx Hiatal Hernia: No Hx Nausea/Vomiting: Yes (sometimes) Hx Wt Loss/Wt Gain: No - Hx Genitourinary Disorders: Yes Hx Kidney Stones: Yes (2012) - ENDOCRINE Hx Endocrine Disorders: Yes Hx Diabetes: Yes Hx Thyroid Disease: No Comment:: last accucheck 7-85 in morning/ 177 during the day - MUSCULOSKELETAL Hx Musculoskeletal Disorders: No - PSYCH Hx Psych Problems: Yes Hx Anxiety: Yes Hx Depression: Yes - HEMATOLOGY/ONCOLOGY Hx Hematology/Oncology Disorders: Yes Hx Cancer: Yes (Colon, tumor removed) Hx Chemotherapy: No Hx Radiation Therapy: No Family Medical History Any Significant Family History?: No Hx Anxiety: Mother, Brother/Sister Hx Cancer: Brother/Sister Hx Heart Disease: Mother Hx HTN: Mother Hx Resp Disorders: Father, Brother/Sister Physical Exam - General General Appearance: Alert, Oriented x3, Cooperative, Mild distress - Head Head exam: Normal inspection - Eye Eye exam: Normal appearance, PERRL, EOMI Pupils: Normal accommodation - ENT ENT exam: Normal exam, Mucous membranes moist, Normal external ear exam, Normal orophraynx, TM's normal bilaterally Ear exam: Normal external inspection. negative: External canal tenderness Nasal Exam: Normal inspection. negative: Discharge, Sinus tenderness Mouth exam: Normal external inspection, Tongue normal Teeth exam: Normal inspection. negative: Dental caries Throat exam: Normal inspection. negative: Tonsillar erythema, Tonsillar exudate - Neck Neck exam: Normal inspection, Full ROM. negative: Tenderness - Respiratory Respiratory exam: Decreased breath sounds. negative: Respiratory distress - Cardiovascular Cardiovascular Exam: Normal rhythm, Normal heart sounds, Tachycardia - GI/Abdominal GI/Abdominal exam: Soft, Normal bowel sounds, Tenderness - Rectal Rectal exam: Deferred - exam: Deferred - Extremities Extremities exam: Normal inspection, Full ROM, Normal capillary refill. negative: Tenderness - Back Back exam: Reports: Normal inspection, Full ROM. Denies: Muscle spasm, Rash noted, Tenderness Image of Body Front/Back: 1 - ecchymosis - Neurological Neurological exam: Alert, CN II-XII intact, Normal gait, Oriented X3 - Psychiatric Psychiatric exam: Normal affect, Normal mood - Skin Skin exam: Dry, Intact, Normal color, Warm Course Vital Signs 07/08/19 07/08/19 17:48 19:14 Temperature 98.4 F Pulse Rate 109 H Pulse Rate [ 95 H Pulse Ox Probe] Respiratory 20 16 Rate Blood Pressure 149/94 Blood Pressure 154/107 [Left Arm] Pulse Ox 94 L 95 Medical Decision Making - Lab Data Result diagrams: 07/08/19 19:00 07/08/19 19:00 Lab Results 07/08/19 07/08/19 07/08/19 Range/Units 19:00 19:00 19:00 WBC 18.2 H (4.2-12.2) K/uL RBC 4.24 (3.80-5.40) M/uL Hgb 13.0 (11.6-16.0) gm/dl Hct 41.3 (35.0-47.0) % MCV 97.4 H (81-97) fl MCH 30.7 (27-33) pg MCHC 31.5 L (32-36) g/dl RDW 13.9 (11.5-14.5) % Plt Count 358 (130-400) K/uL MPV 9.7 (7.4-10.4) fl Neutrophils % 91.0 H (47-80) % Eosinophils % Not Reportable Basophils % Not Reportable Absolute Neutrophils 16.62 Lymphocytes 7.0 L (16-45) % Monocytes 2.0 (0-9) % Platelet Estimate Normal (NORMAL) RBC Morphology Normal PT 11.1 (9.5-12.1) SECONDS INR 1.1 APTT 26.4 (24.5-39.1) SECONDS Sodium 140 (136-145) mmol/L Potassium 4.1 (3.4-4.5) mmol/L Chloride 103 (98-107) mmol/L Carbon Dioxide 23.0 (22-29) mmol/L Anion Gap 14.0 (7-16) BUN 21 H (6-20) mg/dL Creatinine 0.6 (0.5-0.9) mg/dL Estimated GFR > 60 mL/min Random Glucose 117 H (74-109) mg/dL Calcium 10.0 (8.6-10.0) mg/dL Total Bilirubin 0.20 (0.2-1.0) mg/dL AST 12 (10.0-35.0) U/L ALT 14 (<33) U/L Alkaline Phosphatase 110 H (35-104) U/L Total Protein 7.7 (6.6-8.7) g/dL Albumin 4.6 (4.0-5.0) g/dL Globulin 3.1 (1.4-4.8) gm/dL Albumin/Globulin Ratio 1.5 (1.1-1.8) Disposition Disposition: Discharge Clinical Impression: Bronchitis Hematoma of left flank Qualifiers: Encounter type: initial encounter Qualified Code(s): S30.1XXA - Contusion of abdominal wall, initial encounter Disposition: Home, Self-Care Condition: (1) Good Instructions: Hematoma (ED), Acute Bronchitis (ED) Additional Instructions: follow up with family doctor. return sooner if worse.moist heat to side Prescriptions: Amoxicillin/Potassium Clav [Augmentin 875-125 Tablet] 1 tab PO BID #14 tab Benzonatate [Tessalon] 1 cap PO Q8H PRN #14 cap PRN Reason: Cough Forms: Patient Portal Access Quality - Quality Measures Quality Measures: N/A - Blood Pressure Screening Does Patient Have Any of the Following: Active Dx of HTN Blood Pressure Classification: Hypertensive Reading Systolic Measurement: 149 Diastolic Measurement: 94 Screening for High Blood Pressure: Patient Exclusion, Hx of HTN [[id number]]
[2019-07-08] MEDS ORDERED: BENZONATATE 100 MG CAPSULE PO ONE (20:40)
[2019-07-08] MEDS ORDERED: AMOXICILLIN/POTASSIUM CLAV 875MG/125MG TABLET PO ONE (20:40)
--- NOTE | 2019-07-10 08:57 | CT SCAN REPORT ---
EXAMINATION: CT Abdomen and Pelvis without IV Contrast EXAM DATE: 07/08/2019 7:29 PM TECHNIQUE: Standard protocol CT imaging of the abdomen and pelvis was performed without intravenous c ontrast. INDICATION: Abdominal pain COMPARISON: None ENCOUNTER: Not applicable CT ABDOMEN AND PELVIS FINDINGS: No incidental lower thoracic finding. No free air or pneumatosis. Normal appendix. Stigmata of prior ileocecal resection and re-anastomosis . Redundant sigmoid colon. Moderate retained proximal colonic stool. No obstructive uropathy or uroli thiasis demonstrated. Surgically absent gallbladder. No other solid or hollow visceral finding. Kelsey l adrenals. No lymphadenopathy or ascites. Multilevel lumbar spondylosis potentially significant degenerative canal stenosis at L2-L2-L3 suggest ed secondary to bulging and ligamentum flavum thickening. IMPRESSION: No acute intra-abdominal finding No obstructive uropathy or urolithiasis demonstrated Moderate retained colonic stool and gas Potentially significant degenerative L2-L3 central stenosis Dictated by: Severo Woods MD on 07/08/2019 7:40 PM. .
== END 2019-07-08 20:57 | disposition home or self-care (01) ==
LOC: ER 17:40
DX: S30.1XXA Contusion of abdominal wall, initial encounter (principal); J20.9 Acute bronchitis, unspecified; E11.9 Type 2 diabetes mellitus without complications; J44.9 Chronic obstructive pulmonary disease, unspecified; I10 Essential (primary) hypertension; F17.210 Nicotine dependence, cigarettes, uncomplicated; X58.XXXA Exposure to other specified factors, initial encounter
CPT/HCPCS: 71046; 74176; 80053; 85027; 85610; 85730; 99284